=== PATIENT | male | born 1990 | race American Indian/Alaskan Native ===

== ENCOUNTER 2022-04-27 10:09 | Emergency (ER) | payer OTHER ==
[2022-04-27 14:19] VITALS: BP 132/87
[2022-04-27] MEDS ORDERED: TETANUS,DIPH,PERTUSS(ACELL) VACCINE 0.5 ML SYRINGE IM ONE (14:26)
[2022-04-27] MEDS ORDERED: NEOMY 3.5 MG/BACIT 400 UNITS/POLY B 5000 UNITS/GM OINT PACKET TP ONE (14:26)
[2022-04-27] MEDS ORDERED: CYCLOBENZAPRINE 10 MG TAB PO ONE (14:26)
[2022-04-27] MEDS ORDERED: KETOROLAC 10 MG TAB PO ONE (14:26)
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
== END 2022-04-27 16:30 | disposition home or self-care (01) ==
LOC: ED 10:09
DX: M79.604 Pain in right leg (principal); M54.2 Cervicalgia; M25.562 Pain in left knee; V89.2XXA Person injured in unspecified motor-vehicle accident, traffic, initial encounter; Y93.89 Activity, other specified; Y92.89 Other specified places as the place of occurrence of the external cause; Y99.8 Other external cause status
CPT/HCPCS: 90471; 90715; 99284